=== PATIENT | male | born 1965 | race Caucasian/White ===

== ENCOUNTER 2016-08-14 13:30 | Emergency (ER) | payer BC, OTHER | END 2016-08-14 14:48 | disposition home or self-care (01) | LOC: ER1 13:30 | DX: S63.612A Unspecified sprain of right middle finger, initial encounter (principal); F17.210 Nicotine dependence, cigarettes, uncomplicated; X58.XXXA Exposure to other specified factors, initial encounter | CPT/HCPCS: 29130; 73130; 99283 ==